=== PATIENT | male | born 1955 | race African-American/Black ===

== ENCOUNTER 2016-06-07 14:05 | Emergency (ER) | payer OTHER ==
[~2016-06-07] VITALS: Ht 158.8 cm; Wt 62.3 kg
[~2016-06-07 14:05] MED LIST: AMLODIPINE BESY10 MG PO; LEXAPRO10 MG PO; QUETIAPINE FUM100 MG PO; RISPERIDONE1 MG PO; TRAMADOL HCL50 MG PO; TRAZODONE HCL50 MG PO
[2016-06-07 14:24] VITALS: BP 164/101
== END 2016-06-07 17:26 | disposition left against medical advice (07) ==
LOC: EME 14:05
DX: M25.512 Pain in left shoulder (principal); R07.81 Pleurodynia; Z53.21 Procedure and treatment not carried out due to patient leaving prior to being seen by health care provider